=== PATIENT | female | born 1985 | race Caucasian/White ===

== ENCOUNTER 2016-10-09 14:02 | Emergency (ER) | payer SELFPAY ==
[~2016-10-09 14:02] MED LIST: CYCL5TAB PO; IBUP-1060 PO
[2016-10-09 14:14] VITALS: BP 124/84
--- NOTE | 2016-10-09 15:05 | PHYS DOC ---
Past Medical History Past Medical History: No Pertinent History Past Surgical History: Tonsillectomy Alcohol Use: None Drug Use: None Adult General Chief Complaint Chief Complaint: DENTAL PROBLEM HPI HPI Patient is a 31 year old female who presents with left upper dental pain for 3 days with facial swelling that began yesterday. She denies any antibiotic use in the past 90 days. She denies any dental procedures within the past 30 days. Patient does have an established history of poor dental health. She states that she currently does not have a primary care doctor or dental clinic due to cost restrictions and lack of insurance. Review of Systems Review of Systems Constitutional: Denies fever or chills [] Eyes: Denies change in visual acuity, redness, or eye pain [] HENT: Denies nasal congestion or sore throat [] Respiratory: Denies cough or shortness of breath [] Cardiovascular: No additional information not addressed in HPI [] GI: Denies abdominal pain, nausea, vomiting, bloody stools or diarrhea [] : Denies dysuria or hematuria [] Musculoskeletal: Denies back pain or joint pain [] Integument: Denies rash or skin lesions [] Neurologic: Denies headache, focal weakness or sensory changes [] Endocrine: Denies polyuria or polydipsia [] Current Medications Current Medications Current Medications Medications (Trade) Dose Ordered Sig/Connie Start Time Stop Time Status Last Admin Dose Admin Acetaminophen/ Hydrocodone Bitart (Lortab 5/325) 1 tab 1X ONCE 10/09/16 15:15 10/09/16 15:16 DC 10/09/16 15:23 1 TAB Allergies Allergies Allergies Coded Allergies Type Severity Reaction Last Updated Verified Metronidazole HCl Allergy Hives 10/07/13 Yes azithromycin Allergy Hives 10/07/13 Yes metronidazole Allergy Hives 10/07/13 Yes Physical Exam Physical Exam Constitutional: Well developed, well nourished, no acute distress, non-toxic appearance. [] HENT: Normocephalic, atraumatic, bilateral external ears normal, oropharynx moist, no oral exudates, nose normal. Patient with obvious swelling to the left side of her face beginning in the zygomatic region extending inferiorly to the mid cheek region. There is no trismus. There is widespread dental caries and very stages of decay. Patient's left maxillary cuspid, bicuspids are decayed into the dentin. There are inflammatory changes to the gingiva surrounding these teeth. There is no active purulent drainage. There is no fluctuant pocket suggestive of a abscess. Eyes: PERRLA, EOMI, conjunctiva normal, no discharge. [] Neck: Normal range of motion, no tenderness, supple, no stridor. [] Cardiovascular:Heart rate regular rhythm, no murmur [] Lungs & Thorax: Bilateral breath sounds clear to auscultation [] Abdomen: Bowel sounds normal, soft, no tenderness, no masses, no pulsatile masses. [] Skin: Warm, dry, no erythema, no rash. [] Back: No tenderness, no CVA tenderness. [] Extremities: No tenderness, no cyanosis, no clubbing, ROM intact, no edema. [] Neurologic: Alert and oriented X 3, normal motor function, normal sensory function, no focal deficits noted. [] Psychologic: Affect normal, judgement normal, mood normal. [] Current Patient Data Vital Signs Vital Signs Date Time Temp Pulse Resp B/P Pulse Ox O2 Delivery O2 Flow Rate FiO2 10/09/16 14:14 98.8 118 20 98 Room Air 98.8 Lab Values Laboratory Tests Test 10/09/16 15:32 POC Urine HCG, Qualitative Hcg negative (Negative) EKG EKG [] Radiology/Procedures Radiology/Procedures [] Course & Med Decision Making Course & Med Decision Making Patient voiced concerns that she may be as she is approximately 2 weeks late for her menstrual cycle. She denies any vaginal bleeding, pelvic pain , vaginal discharge or dysuria/hematuria. Dragon Disclaimer Dragon Disclaimer This electronic medical record was generated, in whole or in part, using a voice recognition dictation system. Departure Departure Impression: Primary Impression: Periapical abscess Disposition: 01 HOME, SELF-CARE Condition: GOOD Referrals: NON,STAFF (PCP) Patient Instructions: Dental Abscess, Dental Caries-Brief Additional Instructions: 1. test today is negative. 2. Take the medication as prescribed. 3. You really need to see a dentist to address your overall dental health. A dental sheet is been provided to you. Please begin calling to schedule an appointment for further management. Dental health. 4. Apply warm compresses to the left side of your face every 2 hours for 20-30 minutes at a time. Scripts Hydrocodone/Apap 5-325 ([place] 5-325 Tablet)1 Each Tablet1 Tab PO PRN Q6HRS PRN PAIN #15 TAB Prov:SE WILLINGHAM 10/09/16 Amoxicillin 500 Mg [id number] Mg PO TID periapical abscess #30 CAP Prov:SE WILLINGHAM 10/09/16 SE WILLINGHAM Oct 09, 2016 15:05
[2016-10-09] MEDS ORDERED: HYDROCODONE/APAP 5/325MG TABLET. PO ONE (15:15)
[2016-10-09] MEDS ORDERED: AMOX500C PO (15:42)
[2016-10-09] MEDS ORDERED: HYDR-971 PO (15:42)
== END 2016-10-09 15:51 | disposition home or self-care (01) ==
LOC: ER 14:02
DX: K04.7 Periapical abscess without sinus (principal); Z90.89 Acquired absence of other organs; Z88.1 Allergy status to other antibiotic agents
CPT/HCPCS: 81025; 99283